=== PATIENT | male | born 1980 | race Caucasian/White ===

== ENCOUNTER 2017-07-05 17:25 | Emergency (ER) | payer BC ==
[~2017-07-05] VITALS: Ht 185.4 cm; Wt 90.3 kg
[~2017-07-05 17:25] MED LIST: BREO ELLIPTA1 POW IH; BROMFED DM COU118 ML PO; CEPHALEXIN500 MG PO; INCRUSE EL62.5 MCG/A IH; NEXIUM40 MG PO; NOMEDS *; NORCO 325 MG-51 TAB PO; SINGULAIR10 MG PO; TYLENOL WITH CO1 TA1 PO
--- OUTSIDE RECORDS SUMMARY | 2017-07-05 17:50 | External Medical Summary Rpt | CCD ---
Demographics Preferred Language Chadian Marital Status Unknown Pentecostal Affiliation Unknown Race Unknown Ethnic Group Unknown Author Author , TK FREY Address Unknown Phone Immunization No patient found.
--- OUTSIDE RECORDS SUMMARY | 2017-07-05 17:50 | External Medical Summary Rpt | CCD ---
Author Author , LESVIA FREY Address Unknown Phone [email or web address] Purpose Continuity of Care Document - through 2016 Problems Code Diagnosis DOS Provider Status R10.9 UNSPECIFIED ABDOMINAL PAIN S30.0XXA CONTUSION OF LOWER BACK AND PELVIS, INITIAL ENCOUNTER S62.639A DISP FX OF DISTAL PHALANX OF UNSP FINGER, INIT FOR CLOS FX Z53.21 PROC/TRTMT NOT CRD OUT D/T PT [facility] SEEN BY [facility]
--- OUTSIDE RECORDS SUMMARY | 2017-07-05 17:50 | External Medical Summary Rpt | CCD ---
Demographics Preferred Language Russian Marital Status Unknown Advent Affiliation Unknown Race Unknown Ethnic Group Unknown Author Author , TK FREY Address Unknown Phone Immunization No patient found.
--- OUTSIDE RECORDS SUMMARY | 2017-07-05 17:50 | External Medical Summary Rpt | CCD ---
Author Author , LESVIA FREY Address Unknown Phone [email or web address] Purpose Continuity of Care Document - through 2016 Problems Code Diagnosis DOS Provider Status R10.9 UNSPECIFIED ABDOMINAL PAIN S30.0XXA CONTUSION OF LOWER BACK AND PELVIS, INITIAL ENCOUNTER S62.639A DISP FX OF DISTAL PHALANX OF UNSP FINGER, INIT FOR CLOS FX Z53.21 PROC/TRTMT NOT CRD OUT D/T PT [facility] SEEN BY [facility]
[2017-07-05 17:51] LABS: HEMOGLOBIN 14.3 g/dL (14.1-18.0); LYMPH # 2.2 K/mm3 (0.7-4.5); LYMPH % 32.1 % (10-50)
[2017-07-05 18:08] LABS: BUN 13 mg/dL (7-18); GFR (ESTIMATED) 75 ML/MIN (>60)
--- NOTE | 2017-07-05 18:21 | Emergency Room Report ---
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 N Clinical Suspician of Infection? N Mental Status: 1 - Regular (Normal Baseline) Sepsis Risk:Low Sepsis Risk Have you (or family members/close friends) recently traveled outside the [place]? N If Yes, where/when: Have you had exposure to infectious disease within the past month? TB? Other? Specify: Source patient, RN notes reviewed, family, RN/MD Exam Limitations no limitations Comment This is a 36-year-old male arriving to the emergency room with sudden onset of precordial chest pain radiating to the LEFT jaw and LEFT shoulder approximately one hour prior to arrival. Patient denies any previous similar episodes in the past. ALLERGIES Coded Allergies: No Known Allergies (04/27/16) Home Medications Active Scripts D-METHORPHAN HB/P-EPD HCL/BPM (Bromfed Dm Cough Syrup) 10 ML PO QIDP PRN cough #240 ML Prov: 02/26/17 Reported Medications Montelukast Sodium (Singulair) 10 MG PO QHS FLUTICASONE/VILANTEROL (Breo Ellipta 100-25 Mcg INH) 1 POW IH DAILY UMECLIDINIUM BROMIDE (Incruse Ellipta) 62.5 MCG IH DAILY Esomeprazole Magnesium (Nexium 40MG Cap) 40 MG PO DAILY #30 (Giovani LLAMAS,Dominic Ying) History Medical History General CAD? No Angina: No [place]: No Hypertension? No Hyperlipidemia? No CHF? No DVT? No PE? No COPD? Yes Asthma? No Anemia? No GERD? No Gastric ulcers? No GI Bleed? No Hernia? No Thyroid Problems? No Hypothyroidism? No CVA? No Seizures? No Diabetes? No Renal Insuffiency? No End Stage Renal Disease? No UTI? No Stones? Yes BPH? No GB Disease: Yes Nephritic Syndrome? No Asplenia? No Hepatitis? No Sickle Cell Disease? No Arthritis? No Migraines? No Cataracts? No Glaucoma? No MRSA? No HIV? No TB? No Anxiety? No Depression? No Cancer? No More? No Immunization Hx DT/Tetanus 1-4 YRS Surgical Hx Previous Surgery?Y gallbladder Social History Smoking Hx Smoker: Current Every Day Smoker Tobacco: Yes Type Cigarettes Packs/day < 1 Pack Alcohol Alcohol: Yes (Giovani LLAMAS,Dominic Ying) Review of Systems All Other Systems Reviewed and Negative Cardiovascular chest pain (Dominic Matute MD) Physical Exam Vital Signs Vital Signs Date Time Temp Pulse Resp B/P Pulse O2 O2 Flow FiO2 Ox Delivery Rate 07/05 194 97.7 85 16 120/97 97 07/05 190 85 16 120/97 97 07/05 1726 97.7 94 18 96 General Appearance normal appearance, WD/WN Respiratory Status Yes: trachea midline, chest symmetrical, non tender chest. No: respiratory distress. Lung Sounds bilateral: normal breath sounds, lungs clear. 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 No Comment 1899- case turned over to Dr. Teixeira, pending second cardiac enzyme Results/Orders Laboratory Tests 07/05/171899: Creatine Kinase 147, CK-MB (CK-2) Rel Index 0.4, CK and CKMB Interp 0.6, Troponin I < 0.02 07/05/175: Sodium 138, Potassium 3.8, Chloride 104, Carbon Dioxide 27, BUN 13, Creatinine 1.1, Estimated Creat Clear 116, Estimated GFR (MDRD) 75, Glucose 98, Calcium 8.8 , Total Bilirubin 0.1 L, AST 33, ALT 62, Alkaline Phosphatase 61, Creatine Kinase 154, CK-MB (CK-2) Rel Index 0.6, CK and CKMB Interp 0.9, Troponin I < 0.02, Total Protein 7.1, Albumin 3.8, Globulin 3.3 H, Albumin/Globulin Ratio 1.2, WBC 6.7, RBC 4.46 L, Hgb 14.3, Hct 42.0, MCV 94.2, RDW 12.5, Plt Count 291 , MPV 7.5, Gran % 58.5, Gran # 3.9, Lymphocytes % 32.1, Monocytes % 6.2, Eosinophils % 2.6, Basophils % 0.6, Lymphocytes # 2.2, Monocytes # 0.4, Eosinophils # 0.2, Basophils # 0.0, PUBS MCHC 34.1, MCH 32.2 H Current Medication Orders Sig/Rob Start time Last Medication Dose Route Stop Time Status Admin Sodium Chloride 10 ML PRN PRN 07/05 174 AC IV 07/06 173 Orders Procedure Date/time Status CARDIAC ENZYMES 07/05 185 Complete ELECTROCARDIOGRAM REQUEST 07/05 1732 Active IV SALINE LOCK 07/05 1732 Active CBC WITH AUTO DIFF 07/05 1732 Complete CARDIAC ENZYMES 07/05 173 Complete CHEM 12 PROFILE 07/05 173 Complete 12 LEAD EKG-PA (INITIAL) 07/05 UNK Active 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 of ischemic chgs, no ectopy, normal QRS, normal [place], normal EKG, no EKG for comparison, non-spec. ST/Twave chgs, ST elevation, ST depression, LBBB, RBBB, ectopy, abnormal Q waves XRAY/CT/US XRAY/CT/US XRAY chest XR interpretation by discussed w/radiologist Xray Results no infiltrates, normal heart size, normal lung inflation emily Comment No acute process (Dominic Matute MD) Departure Departure Time of Disposition 1856 Disposition Still a Patient Clinical Impression Primary Impression: Chest pain Qualifiers: Chest pain type: unspecified Qualified Code: R07.9 - Chest pain, unspecified Condition STABLE Referrals Dwayne Rios MD Patient Instructions DI for Chest Pain Additional Instructions Please follow-up with Dr. Dwayne Rios within the next 2 days for outpatient cardiac workup to include a stress test. ED Critical Care Critical Care No (Dominic Matute MD) at 1858 at 1947
--- NOTE | 2017-07-05 18:21 | Emergency Room Report ---
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 N Clinical Suspician of Infection? N Mental Status: 1 - Regular (Normal Baseline) Sepsis Risk:Low Sepsis Risk Have you (or family members/close friends) recently traveled outside the [place]? N If Yes, where/when: Have you had exposure to infectious disease within the past month? TB? Other? Specify: Source patient, RN notes reviewed, family, RN/MD Exam Limitations no limitations Comment This is a 36-year-old male arriving to the emergency room with sudden onset of precordial chest pain radiating to the LEFT jaw and LEFT shoulder approximately one hour prior to arrival. Patient denies any previous similar episodes in the past. ALLERGIES Coded Allergies: No Known Allergies (04/27/16) Home Medications Active Scripts D-METHORPHAN HB/P-EPD HCL/BPM (Bromfed Dm Cough Syrup) 10 ML PO QIDP PRN cough #240 ML Prov: 02/26/17 Reported Medications Montelukast Sodium (Singulair) 10 MG PO QHS FLUTICASONE/VILANTEROL (Breo Ellipta 100-25 Mcg INH) 1 POW IH DAILY UMECLIDINIUM BROMIDE (Incruse Ellipta) 62.5 MCG IH DAILY Esomeprazole Magnesium (Nexium 40MG Cap) 40 MG PO DAILY #30 (Giovani LLAMAS,Dominic Ying) History Medical History General CAD? No Angina: No [place]: No Hypertension? No Hyperlipidemia? No CHF? No DVT? No PE? No COPD? Yes Asthma? No Anemia? No GERD? No Gastric ulcers? No GI Bleed? No Hernia? No Thyroid Problems? No Hypothyroidism? No CVA? No Seizures? No Diabetes? No Renal Insuffiency? No End Stage Renal Disease? No UTI? No Stones? Yes BPH? No GB Disease: Yes Nephritic Syndrome? No Asplenia? No Hepatitis? No Sickle Cell Disease? No Arthritis? No Migraines? No Cataracts? No Glaucoma? No MRSA? No HIV? No TB? No Anxiety? No Depression? No Cancer? No More? No Immunization Hx DT/Tetanus 1-4 YRS Surgical Hx Previous Surgery?Y gallbladder Social History Smoking Hx Smoker: Current Every Day Smoker Tobacco: Yes Type Cigarettes Packs/day < 1 Pack Alcohol Alcohol: Yes (Giovani LLAMAS,Dominic Ying) Review of Systems All Other Systems Reviewed and Negative Cardiovascular chest pain (Dominic Matute MD) Physical Exam Vital Signs Vital Signs Date Time Temp Pulse Resp B/P Pulse O2 O2 Flow FiO2 Ox Delivery Rate 07/05 194 97.7 85 16 120/97 97 07/05 190 85 16 120/97 97 07/05 1726 97.7 94 18 96 General Appearance normal appearance, WD/WN Respiratory Status Yes: trachea midline, chest symmetrical, non tender chest. No: respiratory distress. Lung Sounds bilateral: normal breath sounds, lungs clear. 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 No Comment 1899- case turned over to Dr. Teixeira, pending second cardiac enzyme Results/Orders Laboratory Tests 07/05/171899: Creatine Kinase 147, CK-MB (CK-2) Rel Index 0.4, CK and CKMB Interp 0.6, Troponin I < 0.02 07/05/175: Sodium 138, Potassium 3.8, Chloride 104, Carbon Dioxide 27, BUN 13, Creatinine 1.1, Estimated Creat Clear 116, Estimated GFR (MDRD) 75, Glucose 98, Calcium 8.8 , Total Bilirubin 0.1 L, AST 33, ALT 62, Alkaline Phosphatase 61, Creatine Kinase 154, CK-MB (CK-2) Rel Index 0.6, CK and CKMB Interp 0.9, Troponin I < 0.02, Total Protein 7.1, Albumin 3.8, Globulin 3.3 H, Albumin/Globulin Ratio 1.2, WBC 6.7, RBC 4.46 L, Hgb 14.3, Hct 42.0, MCV 94.2, RDW 12.5, Plt Count 291 , MPV 7.5, Gran % 58.5, Gran # 3.9, Lymphocytes % 32.1, Monocytes % 6.2, Eosinophils % 2.6, Basophils % 0.6, Lymphocytes # 2.2, Monocytes # 0.4, Eosinophils # 0.2, Basophils # 0.0, PUBS MCHC 34.1, MCH 32.2 H Current Medication Orders Sig/Rob Start time Last Medication Dose Route Stop Time Status Admin Sodium Chloride 10 ML PRN PRN 07/05 174 AC IV 07/06 173 Orders Procedure Date/time Status CARDIAC ENZYMES 07/05 185 Complete ELECTROCARDIOGRAM REQUEST 07/05 1732 Active IV SALINE LOCK 07/05 1732 Active CBC WITH AUTO DIFF 07/05 1732 Complete CARDIAC ENZYMES 07/05 173 Complete CHEM 12 PROFILE 07/05 173 Complete 12 LEAD EKG-PA (INITIAL) 07/05 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 of ischemic chgs, no ectopy, normal QRS, normal [place], normal EKG, no EKG for comparison, non-spec. ST/Twave chgs, ST elevation, ST depression, LBBB, RBBB, ectopy, abnormal Q waves XRAY/CT/US XRAY/CT/US XRAY chest XR interpretation by discussed w/radiologist Xray Results no infiltrates, normal heart size, normal lung inflation emily Comment No acute process (Dominic Matute MD) Departure Departure Time of Disposition 1856 Disposition Still a Patient Clinical Impression Primary Impression: Chest pain Qualifiers: Chest pain type: unspecified Qualified Code: R07.9 - Chest pain, unspecified Condition STABLE Referrals Dwayne Rios MD Patient Instructions DI for Chest Pain Additional Instructions Please follow-up with Dr. Dwayne Rios within the next 2 days for outpatient cardiac workup to include a stress test. ED Critical Care Critical Care No (Dominic Matute MD) at 1858 at 1947
--- NOTE | 2017-07-05 18:49 | RADIOLOGY REPORT PS360 ---
CHEST(2 VIEWS-NOT PORTABLE) HISTORY: Chest pain CP ORDERING PHYSICIAN: Dominic Matute MD PATIENT AGE: 36 years COMPARISON: 06/24/2016 FINDINGS: The cardiomediastinal silhouette and pulmonary vascularity are within normal limits. The lungs are clear without infiltrates, suspicious nodules, or pleural effusions. No acute bony abnormalities. IMPRESSION: Negative chest, no acute finding
[2017-07-05 19:45] VITALS: BP 120/97
== END 2017-07-05 19:50 | disposition still patient (30) ==
LOC: ER 17:25
PROVIDERS: Emergency Medicine
DX: R07.2 Precordial pain (principal); J44.9 Chronic obstructive pulmonary disease, unspecified; F17.210 Nicotine dependence, cigarettes, uncomplicated; Z79.51 Long term (current) use of inhaled steroids; Z79.899 Other long term (current) drug therapy